=== PATIENT | female | born 1940 | race Caucasian/White ===

== ENCOUNTER 2016-11-30 07:46 | Day surgery (SDC) | payer MEDICARE, OTHER ==
--- NOTE | ~2016-11-30 | EGD ---
EGD REPORT [facility] [address] [address] NAME: KEYONNA MARK : [birth year] STATUS : REG [facility]#: [id number] AGE: 76 ADM/REG DATE : 11/30/16 MR#: [id number] REPORT SERV DATE: 11/30/16 DICTATED BY: NELSON COX DATE: 11/30/16 REPORT STATUS : Draft TRANSCRIBED BY: [facility] DATE: 11/30/16 Endoscopy Center Patient Name: Keyonna Mark Date of : 1940 Attending MD: NELSON COX MD Procedure Date No Time: 11/30/2016 Procedure: Colonoscopy Indications: Abdominal pain, Change in bowel habits, Constipation, Last colonoscopy: 2012 Referring MD: ANGELES CONNORS Medicines: See the Anesthesia note for documentation of the administered medications Complications: No immediate complications. Procedure: Pre-Anesthesia Assessment: - ASA Grade Assessment: III - A patient with severe systemic disease. After I obtained informed consent, the scope was passed under direct vision. Throughout the procedure, the patient's blood pressure, pulse, and oxygen saturations were monitored continuously. The PCF H190L [id number] was introduced through the anus and advanced to the terminal ileum, with identification of the appendiceal orifice and IC valve. The colonoscopy was performed without difficulty. The patient tolerated the procedure well. The quality of the bowel preparation was adequate. Findings: The perianal and digital rectal examinations were normal. Internal hemorrhoids were found during retroflexion and were small. A sessile polyp was found in the cecum. The polyp was small in size. The polyp was removed with a cold biopsy forceps. Resection and retrieval were complete. A flat polyp was found at the ileocecal valve. The polyp was 10 mm in size. The polyp was removed with a hot snare. Resection and retrieval were complete. Impression: - Internal hemorrhoids. - One small polyp in the cecum. Resected and retrieved. - One 10 mm polyp at the ileocecal valve. Resected and retrieved. Recommendation: - Patient has a contact number available for emergencies. The signs and symptoms of potential delayed complications were discussed with the patient. Return to normal activities tomorrow. Written discharge EGD REPORT [address] [address] NAME: KEYONNA MARK : [birth year] STATUS : REG [facility] [place]#: [id number] AGE: 76 ADM/REG DATE : 11/30/16 MR#: [id number] REPORT SERV DATE: 11/30/16 DICTATED BY: NELSON COX DATE: 11/30/16 REPORT STATUS : Draft TRANSCRIBED BY: [employer] DATE: 11/30/16 instructions were provided to the patient. - Regular diet. - Continue present medications. - Repeat colonoscopy for surveillance based on pathology results. - FOR YOUR BIOPSY RESULTS: Please go to [email or web address] and register to receive your results via the portal. Your biopsy results will be posted there in about 7 to 10 days. IF you do not see result in 10 days, call office. Procedure Code(s): --- Professional --- 19510, Colonoscopy, flexible, proximal to splenic flexure; with removal of tumor(s), polyp(s), or other lesion(s) by snare technique 70765, 59, Colonoscopy, flexible, proximal to splenic flexure; with biopsy, single or multiple Diagnosis Code(s): --- Professional --- K64.8, Other hemorrhoids D12.0, Benign neoplasm of cecum R10.9, Unspecified abdominal pain R19.4, Change in bowel habit K59.00, Constipation, unspecified CPT copyright 2013 [employer]. All rights reserved. The codes documented in this report are preliminary and upon yarn spinner review may be revised to meet current compliance requirements. Nelson Cox MD NELSON COX MD 11/30/2016 9:50 AM This report has been signed electronically. Number of Addenda: 0 Note Initiated On: 11/30/2016 9:11 AM Scope Withdrawal Time 0 hours 16 minutes 36 seconds [id number] [place] [id number]
--- NOTE | ~2016-11-30 | EGD ---
EGD REPORT [facility] [address] [address] NAME: KEYONNA MARK : 42 STATUS : REG [facility]#: [id number] AGE: 76 ADM/REG DATE : 11/30/16 MR#: [id number] REPORT SERV DATE: 11/30/16 DICTATED BY: NELSON COX DATE: 11/30/16 REPORT STATUS : Draft [facility]: [facility] DATE: 11/30/16 Endoscopy Center Patient Name: Keyonna Mark Date of : 1940 Attending MD: NELSON COX MD Procedure Date No Time: 11/30/2016 Procedure: Upper GI endoscopy Indications: Generalized abdominal pain, Gastro-esophageal reflux disease Referring MD: ANGELES CONNORS Medicines: See the Anesthesia note for documentation of the administered medications Complications: No immediate complications. Procedure: Pre-Anesthesia Assessment: - ASA Grade Assessment: III - A patient with severe systemic disease. After obtaining informed consent, the endoscope was passed under direct vision. Throughout the procedure, the patient's blood pressure, pulse, and oxygen saturations were monitored continuously. The [facility] H190 [id number] was introduced through the mouth, and advanced to the second part of duodenum. The upper GI endoscopy was accomplished without difficulty. The patient tolerated the procedure well. Findings: The examined duodenum was normal. Mild inflammation was found in the gastric antrum. Biopsies were taken with a cold forceps for histology. The cardia and gastric fundus were normal on retroflexion. A small hiatus hernia was present. Impression: - Normal examined duodenum. - Gastritis. Biopsied. - Hiatus hernia. Recommendation: - Patient has a contact number available for emergencies. The signs and symptoms of potential delayed complications were discussed with the patient. Return to normal activities tomorrow. Written discharge instructions were provided to the patient. - Regular diet. - Continue present medications. - FOR YOUR BIOPSY RESULTS: Please go to [email or web address] and register to receive your EGD REPORT [address] [address] NAME: KEYONNA MARK : [birth year] STATUS : REG [facility]#: [id number] AGE: 76 ADM/REG DATE : 11/30/16 MR#: [id number] REPORT SERV DATE: 11/30/16 DICTATED BY: NELSON COX DATE: 11/30/16 REPORT STATUS : Draft TRANSCRIBED BY: [employer] DATE: 11/30/16 results via the portal. Your biopsy results will be posted there in about 7 to 10 days. IF you do not see result in 10 days, call office. Procedure Code(s): --- Professional --- 89675, Esophagogastroduodenoscopy, flexible, transoral; with biopsy, single or multiple Diagnosis Code(s): --- Professional --- K29.70, Gastritis, unspecified, without bleeding K44.9, Diaphragmatic hernia without obstruction or gangrene R10.84, Generalized abdominal pain K21.9, Gastro-esophageal reflux disease without esophagitis CPT copyright 2013 [employer]. All rights reserved. The codes documented in this report are preliminary and upon certified professional coder review may be revised to meet current compliance requirements. Nelson Cox MD NELSON COX MD 11/30/2016 9:25 AM This report has been signed electronically. Number of Addenda: 0 Note Initiated On: 11/30/2016 9:16 AM [address] [address]
[~2016-11-30 07:46] MED LIST: ASAB PO; AVAP150 PO; BENICAR40 PO; EQUATE ALLERGY; HYDRO PO; HYDROCHLOROT25 MG PO; HYGROTON 25 MG25 MG PO; IMDUR30 PO; Imdur PO; LEVOTHROID125 MCG PO; LEVOTHYROXIN125 MCG PO; LIPITOR20 PO; LIPITOR40 PO; LOP25 PO; MOBIC15 MG PO; NORCO1 TA1 PO; OMEPRAZOLE; P10 PO; PAX10 PO; PLAQ200B PO; ULTRAM50 PO; ZANAFLEX 4 MG TA4 MG PO; ZOFRAN8 PO
[2017-03-12] MEDS ORDERED: HCTZ25B PO (04:06)
[2017-03-12] MEDS ORDERED: PROTONIX PO (04:06)
[2017-03-12] MEDS ORDERED: AVAP150 PO (04:07)
[2017-03-12] MEDS ORDERED: IMDUR30 PO (04:07)
[2017-03-12] MEDS ORDERED: LEVOTHYROXIN125 MCG PO (04:08)
[2017-03-12] MEDS ORDERED: LIPITOR40 PO (04:09)
[2017-03-12] MEDS ORDERED: LOP25 PO (04:09)
[2017-03-12] MEDS ORDERED: ASAB PO (04:09)
[2017-03-12] MEDS ORDERED: P1 PO (04:10)
[2017-03-12] MEDS ORDERED: ZYRTEC ALLGY10 MG PO (04:10)
[2017-03-12] MEDS ORDERED: XALAT OPH (04:11)
[2017-03-12] MEDS ORDERED: PLAQ200B PO (04:13)
== END 2016-11-30 23:59 | disposition home or self-care (01) ==
LOC: DMU 07:46
PROVIDERS: Internal Medicine Gastroenterology
PROC: 0DBC8ZZ Excision of Ileocecal Valve, Via Natural or Artificial Opening Endoscopic (ICD-10-PCS; principal; 2016-11-30 09:30)
PROC: 0DBH8ZZ Excision of Cecum, Via Natural or Artificial Opening Endoscopic (ICD-10-PCS; 2016-11-30 09:30)
PROC: 0DB68ZX Excision of Stomach, Via Natural or Artificial Opening Endoscopic, Diagnostic (ICD-10-PCS; 2016-11-30 09:30)
DX: D12.0 Benign neoplasm of cecum (principal); K29.50 Unspecified chronic gastritis without bleeding; K64.8 Other hemorrhoids; R10.9 Unspecified abdominal pain; R19.4 Change in bowel habit; K59.00 Constipation, unspecified; I10 Essential (primary) hypertension; E78.00 Pure hypercholesterolemia, unspecified; M19.90 Unspecified osteoarthritis, unspecified site; E03.9 Hypothyroidism, unspecified; F32.9 Major depressive disorder, single episode, unspecified; R09.81 Nasal congestion; M35.00 Sjogren syndrome, unspecified; K21.9 Gastro-esophageal reflux disease without esophagitis; G43.909 Migraine, unspecified, not intractable, without status migrainosus; I25.10 Atherosclerotic heart disease of native coronary artery without angina pectoris; Z86.718 Personal history of other venous thrombosis and embolism; Z88.8 Allergy status to other drugs, medicaments and biological substances; Z79.899 Other long term (current) drug therapy; Z79.52 Long term (current) use of systemic steroids; Z79.891 Long term (current) use of opiate analgesic; Z79.82 Long term (current) use of aspirin; K44.9 Diaphragmatic hernia without obstruction or gangrene; R10.84 Generalized abdominal pain
CPT/HCPCS: 88305; 88342